=== PATIENT | female | born 1950 | race Caucasian/White ===

== ENCOUNTER 2022-05-16 20:26 | Emergency (ER) | payer MEDICARE, SELFPAY ==
[2022-05-16 20:34] VITALS: BP 146/86; PULSE 84; RESP 18; TEMP 36.9; O2SAT 94; BMI 40.4
--- NOTE | 2022-05-16 21:24 | CRLHL7_ITS ---
For Patients: As a result of the Cures Act, medical imaging exams and procedure reports are released immediately into your electronic medical record. You may view this report before your referring provider. If you have questions, please contact your health care provider. HISTORY: Forefoot injury. COMPARISON: None available. FINDINGS: The left foot is examined with AP, lateral, and oblique views. There is an acute, minimally displaced, oblique, intra-articular fracture of the medial aspect of the base of the 5th proximal phalanx. There is an old, partially healed, oblique fracture of the distal shaft of the 5th metatarsal with mild deformity. There is no sign of additional acute fracture or dislocation. There is mild soft tissue swelling of the dorsal and plantar distal foot overlying the MTP joints. 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 IMPRESSION: Acute, minimally displaced, oblique, intra-articular fracture of the medial aspect of the base of the 5th proximal phalanx. Old, partially noted, oblique fracture of the distal shaft of the 5th metatarsal with mild deformity. Dictated by Shakir Wiley MD @ 05/16/2022 10:34:21 PM (Electronically Signed)
--- NOTE | 2022-05-16 21:24 | CRLHL7_ITS ---
For Patients: As a result of the Cures Act, medical imaging exams and procedure reports are released immediately into your electronic medical record. You may view this report before your referring provider. If you have questions, please contact your health care provider. INDICATION: Evaluate for fracture. Fore foot injury. Pain. COMPARISON: None available. FINDINGS: AP, lateral and oblique views of the left ankle were obtained for a total of three views. There is no sign of fracture or dislocation. The ankle mortise is intact. The talar dome is intact. There is no sign of a joint effusion. The soft tissues are normal in appearance with no sign of foreign body. No degenerative changes are seen. IMPRESSION: Normal left ankle. Dictated by Shakir Wiley MD @ 05/16/2022 10:26:54 PM (Electronically Signed)
--- NOTE | 2022-05-16 22:27 | ED_ITS ---
HPI - General Adult General Chief complaint: Extremity Pain/Injury, Lower Stated complaint: Fell and injured Left Foot Time Seen by Provider: 05/16/22 21:22 Source: patient Mode of arrival: wheelchair Limitations: no limitations History of Present Illness HPI narrative: 9-year-old female coming in today with foot pain. She stepped off the deck without realizing she was on the last step and fell hard on her left foot and shoulder. She states that her shoulder feels fine. She did not hit her head or lose consciousness. But she states that ever since falling she has had pain on the top of her foot. She has been limping around all day the foot has gotten more swollen and the pain has worsened over the the day. She is not on any blood thinners. The fall happened this morning. Related Data Home Medications Medication Instructions Recorded Confirmed Ambien 05/16/22 Tylenol 05/16/22 amlodipine 05/16/22 atenolol 05/16/22 bupropion HCl 05/16/22 cephalexin 250 mg capsule 250 mg PO DAILY 05/16/22 05/16/22 hydrochlorothiazide 05/16/22 omeprazole 05/16/22 paroxetine HCl 05/16/22 potassium 05/16/22 tramadol 05/16/22 Allergies Allergy/AdvReac Type Severity Reaction Status Date / Time Penicillins Allergy one time Verified 05/16/22 20:40 bad rash sulfas Allergy Uncoded 05/16/22 20:40 Review of Systems Status of ROS: Reports: 6 or more systems reviewed and unremarkable except as noted in History and below [facility] Social History Smoking Status: Former smoker How often do you have a drink containing alcohol: monthly or less AUDIT-C Alcohol total score: 1 Non-prescribed substance use: denies use Exam Narrative: Exam Narrative: Overweight, well-developed patient in no acute distress. Alert and oriented. Answers questions appropriately. Mood and affect are appropriate. Thoughts are goal oriented and rational. No tangential or magical thinking noted. Patient speaks in full sentences without needing to catch their breath. HEENT: Normocephalic atraumatic. Pupils are equally round reactive to light. Extraocular muscles are intact. Conjunctivae are moist without any icterus noted. Extremities: Left foot is swollen. There is no erythema or ecchymosis noted. She has tenderness over the lateral foot just proximal to the base of the 5th toe. Ankle appears normal. She has no tenderness with movement at the ankle, no tenderness with palpation at the Meter old lateral malleoli. No tenderness at the heel. Foot is well perfused. No tenting of the skin is noted over the foot. Skin: Well perfused without any obvious rashes. Const: Vital Signs, click to edit/add: Vital Signs - 24 hr 05/16/22 20:34 Temperature 98.5 F Pulse Rate [Left P ulse Oximeter] 84 Respiratory Rate 18 Blood Pressure [Ri ght Upper Arm] 146/86 H Pulse Oximetry 94 Course Course Hospital Course: X-ray of the ankle was unremarkable. X-ray of the foot was read as intra-articular fracture of the medial aspect of the base of the 5th proximal phalanx and an old fracture of the distal shaft of the 5th metatarsal. Vital Signs Vital signs: Initial Vital Signs Temperature 98.5 F 05/16/22 20:34 Temperature Source Oral 05/16/22 20:34 Pulse Rate 84 05/16/22 20:34 Respiratory Rate 18 05/16/22 20:34 Blood Pressure 146/86 H 05/16/22 20:34 Blood Pressure Mean 106 05/16/22 20:34 Blood Pressure Position Sitting 05/16/22 20:34 Pulse Oximetry 94 05/16/22 20:34 Vital Signs Temperature 98.5 F 05/16/22 20:34 Pulse Rate 84 05/16/22 20:34 Respiratory Rate 18 05/16/22 20:34 Blood Pressure 146/86 H 05/16/22 20:34 Pulse Oximetry 94 05/16/22 20:34 Temperature 98.5 F 05/16/22 20:34 Pulse Rate 84 05/16/22 20:34 Respiratory Rate 18 05/16/22 20:34 Blood Pressure 146/86 H 05/16/22 20:34 Pulse Oximetry 94 05/16/22 20:34 Medical Decision Making MDM Narrative Medical decision making narrative: Fracture of foot- 5th proximal phalanx. Patient will be placed in a postop shoe, toes will be jenifer-taped and she will follow up with Orthopedics. We discussed symptomatic treatment with elevation, icing and Tylenol. Imaging Data Left ankle x-ray: Attestation: I have reviewed the pertinent imaging results. My impression: No acute findings Radiologist's impression: FINDINGS: AP, lateral and oblique views of the left ankle were obtained for a total of three views. There is no sign of fracture or dislocation. The ankle mortise is intact. The talar dome is intact. There is no sign of a joint effusion. The soft tissues are normal in appearance with no sign of foreign body. No degenerative changes are seen. IMPRESSION: Normal left ankle. Left foot x-ray: Attestation: I have reviewed the pertinent imaging results. Radiologist's impression: FINDINGS: The left foot is examined with AP, lateral, and oblique views. There is an acute, minimally displaced, oblique, intra-articular fracture of the medial aspect of the base of the 5th proximal phalanx. There is an old, partially healed, oblique fracture of the distal shaft of the 5th metatarsal with mild deformity. There is no sign of additional acute fracture or dislocation. There is mild soft tissue swelling of the dorsal and plantar distal foot overlying the MTP joints. 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 IMPRESSION: Acute, minimally displaced, oblique, intra-articular fracture of the medial aspect of the base of the 5th proximal phalanx. Old, partially noted, oblique fracture of the distal shaft of the 5th metatarsal with mild deformity. Discharge Plan Discharge Clinical Impression: Foot fracture Patient Disposition: Home, Self-Care Condition: Stable Additional Instructions: Keep toes jenifer-taped. You can remove the tape to clean between the toes daily. Wear postop shoe at all times for comfort. Elevate legs as much as possible to help with swelling. Continue to ice 20 minutes at a time today and tomorrow, 3- 4 times per day. Do not apply ice directly to skin. You will need to follow-up appointment with orthopedic surgery. Prescriptions: No Action Ambien hydrochlorothiazide tramadol Tylenol potassium cephalexin 250 mg capsule 250 mg PO DAILY omeprazole paroxetine HCl bupropion HCl atenolol amlodipine Follow Up/Referrals: Provider,Not a Local [Primary Care Provider] - Stand Alone [facility]
[2022-05-16 23:08] VITALS: PULSE 67; RESP 18; O2SAT 97
== END 2022-05-16 23:10 | disposition home or self-care (01) ==
PROVIDERS: Emergency Provider Family Medicine
DX: S92.511A Displaced fracture of proximal phalanx of right lesser toe(s), initial encounter for closed fracture (principal); W17.4XXA Fall from dock, initial encounter; Y93.89 Activity, other specified; Y92.89 Other specified places as the place of occurrence of the external cause; Y99.8 Other external cause status
CPT/HCPCS: 73610; 73630; 99283; 99284